=== PATIENT | female | born 1975 | race Caucasian/White ===

== ENCOUNTER 2018-07-06 08:57 | Outpatient (CLI) | payer MEDICAID | END 2018-07-06 08:58 | disposition home or self-care (01) | LOC: C.PAT 08:57 | DX: N20.0 Calculus of kidney (principal) ==

== ENCOUNTER 2018-07-16 10:31 | Day surgery (SDC) | payer MEDICAID ==
[2018-07-16 11:34] VITALS: BMI 34.0
[2018-07-16 12:20] LABS: SQUAMOUS EPITHIAL 16 /hpf (0-5); URINE BACTERIA MANY (<OCC); URINE BILIRUBIN NEGATIVE (NEGATIVE); URINE BLOOD 2+ (NEGATIVE); URINE CLARITY Hazy (Clear); URINE COLOR Yellow (YELLOW); URINE GLUCOSE (UA) NORMAL (Normal); URINE LEUKOCYTE ESTERASE 3+ Leu/uL (Negative); URINE PROTEIN 2+ mg/dL (NEGATIVE); URINE UROBILINOGEN NORMAL mg/dL (0.2-1.0)
[2018-07-16] MEDS ORDERED: Ciprofloxacin 400mg/200ml D5W 400 MG/200 ML BAG IVPB ONE (13:00)
[2018-07-16] MEDS ORDERED: Gentamicin 80 mg in 0.9% NS 160 MG/200 ML BAG IVPB ONE (13:00)
[2018-07-16] MEDS ORDERED: Lidocaine Hydrochloride 5 ML INJ ONE (13:04)
[2018-07-16] MEDS ORDERED: Midazolam 2 MG/2 ML VIAL ONE (13:27)
[2018-07-16] MEDS ORDERED: Propofol 10 mg/ml Inj (20 ML) ONE ×3 (13:27→13:53)
--- NOTE | 2018-07-16 14:20 | PCM.SURG1 ---
Surgeon's Initial Post Op Note - Surgeon's Notes Surgeon: Mariya Mold Puller: sara Type of Anesthesia: General LMA Anesthesia Administered By: Staff Pre-Operative Diagnosis: Left upper ureteral stone and stent Operative Findings: Left upper ureteral calculi/stent Post-Operative Diagnosis: same Operation Performed: Ureteroscopy/laser lithotripsyRemoval& replacment of stent Specimen/Specimens Removed: stent Estimated Blood Loss: EBL {In ML}: 0 Blood Products Given: N/A Drains Used: No Drains Post-Op Condition: Good Date of Surgery/Procedure: 07/16/18 Time of Surgery/Procedure: 14:20
[2018-07-16] MEDS ORDERED: HYDROmorphone 0.5 mg/0.5 ml ISec IVP PRN (14:21)
[2018-07-16 14:55] VITALS: O2SAT 99
[2018-07-16 15:41] VITALS: RESP 14
[2018-07-16 16:13] VITALS: BP 123/69; PULSE 79; TEMP 98
--- NOTE | 2018-07-17 12:50 | RAD ---
COMPARISON: 07/16/2018 PROCEDURE: HISTORY: As above TECHNIQUE: Total fluoroscopic time utilized during the procedure: 30.7 seconds ; 1.01 mGy cm 2 FINDINGS: Submitted images from the current procedure: 4 Please refer to the physician's notes performing the procedure. IMPRESSION: Less than 1 hour fluoroscopic time utilized during performance of the procedure
--- NOTE | 2018-07-17 12:57 | RAD ---
Date of service: 07/16/2018 HISTORY: URETHRA STONE COMPARISON: None available. TECHNIQUE: 1 view obtained. Two images FINDINGS: BOWEL: Mild stool retention. No bowel obstruction appreciated. BONES: Normal. OTHER FINDINGS: On banquet manager image series 1, image 1 double-J left ureteral stent is in place. Along the proximal 1/4 left ureteral stent a 12 x 5 mm calculus at the left ureteropelvic junction/proximal ureter is noted On series 1, image 2 this calculus has changed in position-to a more cephalad location; projecting over the left intrarenal pelvic collecting system at the left lower renal pole level. IMPRESSION: The double-J left ureteral stent appears in satisfactory positioning. Between the 2 images, the left 12 x 5 mm calculus has in position. Its last final position projects over the left lower renal pole intra renal collecting system.
--- NOTE | 2018-07-17 18:58 | OP ---
PROCEDURE DATE: 07/16/2018 SURGEON: Giuseppe Meraz MD AIRPLANE ELECTRICIAN: There were no assistants. FINDINGS: Stone in the upper ureter. DESCRIPTION OF PROCEDURE: The procedure is as follows. A detailed informed consent was obtained from the patient since she was unable to obtain records from the doctor or hospital who inserted the stent. We told her that she may need ureteroscopy and laser lithotripsy or simply removal of the stent. She agreed to either procedure after being apprised of all risks and complications of the procedure. She was brought into the cysto suite and draped and prepped in the usual manner. A timeout was taken according to rules and regulations of [facility]. KUB was obtained which showed a right upper ureteral calculi and a stent in position. The patient was advised that the stone was in place and anesthetized, and the patient was cystoscoped with #21 Storz panendoscope. The tip of the stent was grasped and pulled out the urethra. A guidewire was passed through the stent and up into the renal pelvis under fluoroscopic control. The cystoscope was then removed, and the ureteroscope was inserted with a separate guidewire in place. The ureter was hydrodilated and the wire was passed up into the renal pelvis as a safety wire, and then the scope was passed along the wire. At the upper ureter, a stone was visualized. The safety wire in the scope was removed leaving the other wire in place, and the stone was fragmented. The scope was then backed down over the original wire. The 6[place] double-J stent was placed with a string attached. The patient is to return to our office next week for stent removal. She tolerated this procedure well and was advised of all findings and postop management in recovery room after she recovered from the anesthesia. Giuseppe Meraz MD
== END 2018-07-16 16:39 | disposition home or self-care (01) ==
LOC: EDBD → C.SDS 10:31
PROVIDERS: ATTEND Urology
DX: N20.1 Calculus of ureter (principal)
CPT/HCPCS: 52315; 74018; 81001; 88300; C1725; C1758; C1769; J0744; J1170; J1580